=== PATIENT | male | born 1985 | race Two or more races ===

== ENCOUNTER 2020-04-20 14:07 | Emergency (ER) | payer OTHER ==
[~2020-04-20] VITALS: Ht 170.2 cm; Wt 113.4 kg
[2020-04-20 14:14] VITALS: BP 153/84
--- NOTE | 2020-04-20 14:57 | NUR ---
Patient discharged to home in stable condition. Written and verbal after care instructions given. Patient verbalizes understanding of instruction.
== END 2020-04-20 14:59 | disposition home or self-care (01) ==
LOC: ER 14:10
DX: Z03.818 Encounter for observation for suspected exposure to other biological agents ruled out (principal)